=== PATIENT | female | born 1970 | race Caucasian/White ===

== ENCOUNTER → 2021-02-14 | Outpatient (CLI) | payer BC | END | disposition home or self-care (01) | LOC: CFH 13:20 | PROVIDERS: ATTEND Family Medicine | DX: Z12.31 Encounter for screening mammogram for malignant neoplasm of breast (principal); Z13.820 Encounter for screening for osteoporosis; M85.80 Other specified disorders of bone density and structure, unspecified site; N63.11 Unspecified lump in the right breast, upper outer quadrant; N95.9 Unspecified menopausal and perimenopausal disorder | CPT/HCPCS: 77063; 77067; 77080 ==

== ENCOUNTER → 2021-03-01 | Outpatient (CLI) | payer BC | END | disposition home or self-care (01) | LOC: CFH 10:07 | PROVIDERS: ATTEND Family Medicine | DX: N60.02 Solitary cyst of left breast (principal); N60.01 Solitary cyst of right breast; R92.8 Other abnormal and inconclusive findings on diagnostic imaging of breast | CPT/HCPCS: 76642; 77066 ==